=== PATIENT | male | born 1945 | race Caucasian/White ===

== ENCOUNTER 2020-07-14 13:40 | Emergency (ER) | payer MEDICARE ==
[2020-07-14 15:28] LABS: HEMOGLOBIN 13.2 gm/dl (14.0-17.5); RED BLOOD COUNT 4.54 M/UL (4.20-5.50); WHITE BLOOD COUNT 4.6 K/UL (4.5-11.0)
[2020-07-14 16:01] LABS: BUN/CREATININE RATIO 21 (0-10)
== END 2020-07-14 19:30 | disposition home or self-care (01) ==
LOC: ER1 13:40
PROVIDERS: Physician Assistant
DX: U07.1 COVID-19 (principal); I10 Essential (primary) hypertension; Z87.09 Personal history of other diseases of the respiratory system
CPT/HCPCS: 71045; 80053; 83605; 85025; 93005; 96374; 99284; J1100; M0239

== ENCOUNTER → 2020-09-19 | Outpatient (CLI) | payer MEDICARE | LOC: KOH-I 13:38 | DX: M54.2 Cervicalgia (principal); M25.512 Pain in left shoulder; M50.30 Other cervical disc degeneration, unspecified cervical region | CPT/HCPCS: 72050; 73030 ==

== ENCOUNTER → 2021-04-16 | Outpatient (CLI) | payer MEDICARE | LOC: KOH-I 10:48 | DX: R06.02 Shortness of breath (principal); R05.9 Cough, unspecified | CPT/HCPCS: 71046 ==

== ENCOUNTER → 2021-05-17 | Outpatient (CLI) | payer BLACK LUNG | LOC: KOH-I 08:12 | DX: M79.4 Hypertrophy of (infrapatellar) fat pad (principal); J44.9 Chronic obstructive pulmonary disease, unspecified; R91.8 Other nonspecific abnormal finding of lung field | CPT/HCPCS: 71250 ==